=== PATIENT | female | born 2000 | race Caucasian/White ===

== ENCOUNTER 2022-07-17 09:17 | Emergency (ER) | payer OTHER, SELFPAY ==
[2022-07-17 09:24] VITALS: BP 133/94; PULSE 80; RESP 20; TEMP 36.6; O2SAT 98; BMI 25.1
[2022-07-17 09:35] LABS: Appearance Urine Cloudy (Clear); Bilirubin Urine Negative (Negative); Blood Urine 3+ (Negative); Color Urine Yellow (Yellow); Glucose Urine Negative (Negative); Ketones Urine Negative (Negative); Leukocyte Esterase Urine 3+ (Negative); Nitrite Urine Negative (Negative); Protein Urine 3+ (Negative); Specific Gravity Urine 1.015 (1.000-1.030); Urobilinogen Urine 0.2 (0.2-1.0)
[2022-07-17 09:47] LABS: Bacteria Urine Moderate; RBC Urine >100 (0-2); Squamous Epithelial Cell Urine Moderate (None-Few); WBC Urine >100 (0-5)
--- NOTE | 2022-07-17 09:57 | ED.GENADULT ---
HPI - General Adult General Chief complaint: Urogenital Problems, Female Stated complaint: Pain while urinating Time Seen by Provider: 07/17/22 09:20 History of Present Illness HPI narrative: Patient is a pleasant 21-year-old female has had some dysuria frequency and little bit of gross hematuria noted over the last 12 hours, she has had UTIs in the past. Patient usually responds well to medication. She denies any history of urologic problems other than recurrent bladder infection in the past. She has had no rigors, no flank pain, no chills. Related Data Previous Rx's Medication Instructions Recorded sulfamethoxazole 800 1 tab PO BID 7 days #14 tabs 07/17/22 mg-trimethoprim 160 mg tablet Allergies Allergy/AdvReac Type Severity Reaction Status Date / Time No Known Drug Allergies Allergy Verified 07/17/22 09:24 Review of Systems Status of ROS: Reports: 6 or more systems reviewed and unremarkable except as noted in History and below PFSH PFSH Social History Smoking Status: Never smoker Do you use any of these nicotine containing products: None Second hand tobacco smoke exposure: No How often do you have a drink containing alcohol: monthly or less How many standard drinks containing alcohol do you have on a typical day: 3 or 4 How often do you have six or more drinks on one occasion: Never AUDIT-C Alcohol total score: 2 Non-prescribed substance use: denies use service: No Exam Narrative: Exam Narrative: Objective: Patient's vital signs are unremarkable she is afebrile No CVA tenderness Alert orient x3 no cyanosis Const: Vital Signs, click to edit/add: Vital Signs - 24 hr 07/17/22 09:24 Temperature 97.8 F Pulse Rate [Pulse Oximeter] 80 Respiratory Rate 20 Blood Pressure [Ri ght Upper Arm] 133/94 H Pulse Oximetry 98 Oxygen Delivery Me thod Room Air Course Vital Signs Vital signs: Initial Vital Signs Temperature 97.8 F 07/17/22 09:24 Temperature Source Temporal Artery Scan 07/17/22 09:24 Pulse Rate 80 07/17/22 09:24 Pulse Rhythm Regular 07/17/22 09:24 Respiratory Rate 20 07/17/22 09:24 Blood Pressure 133/94 H 07/17/22 09:24 Blood Pressure Mean 107 H 07/17/22 09:24 Blood Pressure Position Sitting 07/17/22 09:24 Pulse Oximetry 98 07/17/22 09:24 Oxygen Delivery Method Room Air 07/17/22 09:24 Vital Signs Temperature 97.8 F 07/17/22 09:24 Pulse Rate 80 07/17/22 09:24 Respiratory Rate 20 07/17/22 09:24 Blood Pressure 133/94 H 07/17/22 09:24 Pulse Oximetry 98 07/17/22 09:24 Oxygen Delivery Method Room Air 07/17/22 09:24 Temperature 97.8 F 07/17/22 09:24 Pulse Rate 80 07/17/22 09:24 Respiratory Rate 20 07/17/22 09:24 Blood Pressure 133/94 H 07/17/22 09:24 Pulse Oximetry 98 07/17/22 09:24 Oxygen Delivery Method Room Air 07/17/22 09:24 Medical Decision Making MDM Narrative Medical decision making narrative: Patient has marked hematuria microscopic and pyuria. Moderate amount of bacteria. Will give Septra DS 1 p.o. now will start b.i.d. x7 days. Cranberry juice, orange juice orally, adequate hydration, light activity, return as needed or not improving in next 24 hours. Lab Data Labs: Lab Results 07/17/22 Range/Units 09:21 Urine Color Yellow (Yellow) Urine Appearance Cloudy A (Clear) Urine pH 7.0 (5.0-8.5) Ur Specific [place] 1.015 (1.000-1.030) Urine Protein 3+ A (Negative) Urine Glucose (UA) Negative (Negative) Urine Ketones Negative (Negative) Urine Blood 3+ A (Negative) Urine Nitrite Negative (Negative) Urine Bilirubin Negative (Negative) Urine Urobilinogen 0.2 (0.2-1.0) Ur Leukocyte Esterase 3+ A (Negative) Urine RBC >100 A (0-2) Urine WBC >100 A (0-5) Ur Squamous Epith Cells Moderate A (None-Few) Urine Bacteria Moderate A (None) Discharge Plan Discharge Clinical Impression: Urinary tract infection Patient Disposition: Home, Self-Care Condition: Stable Additional Instructions: Light activity, cranberry juice by mouth, Septra DS 1 p.o. b.i.d. x7 days. Return as needed. Activity Level: Light activity Discharge Diet: Regular Prescriptions: New sulfamethoxazole-trimethoprim 800-160 mg tablet 1 tab PO BID 7 Days Qty: 14 0RF Follow Up/Referrals: Robert Alonso MD [Primary Care Provider] - Stand Alone Forms: [employer] [employer] Info Instructions
== END 2022-07-17 10:30 | disposition home or self-care (01) ==
PROVIDERS: Emergency Provider Family Medicine; PCP Family Medicine
DX: N39.0 Urinary tract infection, site not specified (principal)
CPT/HCPCS: 81001; 87086; 87186; 99283; A9270

== ENCOUNTER 2023-03-19 14:00 | Emergency (ER) | payer OTHER, SELFPAY ==
[2023-03-19 14:31] VITALS: BP 127/85; PULSE 76; RESP 18; TEMP 36.4; O2SAT 98; BMI 21.5
--- NOTE | 2023-03-19 14:38 | ED.GENADULT ---
HPI - General Adult General Chief complaint: Headache/Migraine Stated complaint: Body aches, headache Time Seen by Provider: 03/19/23 14:27 History of Present Illness HPI narrative: Pt recently in [place]. Since 03/15/23, pt has had body aches, headaches, and sore throat. Headache is worsening. Pt now very fatigued x 2 days, nausea started today. States it hurts to lift her head straight forward. Denies light or sound sensitivity. Negative COVID test this AM. 22-year-old young woman presenting to emergency department with headache. Began to have nausea today. No abdominal pain. Notes a history of menstrual related ?migraines? that have improved since placement of IUD. Over the last 4 days developed initial symptoms of body aches and briefly with sore throat and is left with a residual headache. No visual disturbances no focal weaknesses. No rashes. No fever. She did test negative for COVID this morning. Major concerning symptom is that she seems to be unwilling to lift her head all the way up; notes that it just hurts. No photophobia. Admits she is probably dehydrated partly related to travel; this often happens. Related Data Home Medications Medication Instructions Recorded Confirmed No Known Home Medications 03/19/23 03/20/23 Allergies Allergy/AdvReac Type Severity Reaction Status Date / Time No Known Drug Allergies Allergy Verified 03/20/23 10:52 Review of Systems Status of ROS: Reports: 6 or more systems reviewed and unremarkable except as noted in History and below [facility] Social History Smoking Status: Never smoker Do you use any of these nicotine containing products: None Second hand tobacco smoke exposure: No How often do you have a drink containing alcohol: monthly or less How many standard drinks containing alcohol do you have on a typical day: 3 or 4 How often do you have six or more drinks on one occasion: Never AUDIT-C Alcohol total score: 2 Non-prescribed substance use: denies use service: No Exam Narrative: Exam Narrative: Tall. Well-nourished. Seems tired. Transitions without difficulty but clearly does not want to lift her head fully vertical noting pain at the base of the posterior neck. Moving all extremities without difficulty with good strength. Skin is warm and dry. She is well-perfused without edema. Cranial nerves 2-12 intact. Pupils are equal and briskly reactive. Oropharynx is moist not erythematous. Neck is without anterior or posterior lymphadenopathy. With prompting she does have full range of motion of her neck. Can go to extension of the neck. She does not otherwise demonstrate meningeal signs. TMs are clear. Lungs are clear. Heart with regular rate and rhythm. Const: Vital Signs, click to edit/add: Vital Signs - 24 hr 03/19/23 14:31 Temperature 97.5 F L Pulse Rate [Pulse Oximeter] 76 Respiratory Rate 18 Blood Pressure [Ri t Upper Arm] 127/85 Pulse Oximetry 98 Oxygen Delivery Me thod Room Air Documenting provider has reviewed patient's vital signs: yes Course Vital Signs Vital signs: Initial Vital Signs Temperature 97.5 F L 03/19/23 14:31 Temperature Source Temporal Artery Scan 03/19/23 14:31 Pulse Rate 76 03/19/23 14:31 Pulse Rhythm Regular 03/19/23 14:31 Pulse Strength 3+ Normal 03/19/23 14:31 Respiratory Rate 18 03/19/23 14:31 Blood Pressure 127/85 03/19/23 14:31 Blood Pressure Mean 99 03/19/23 14:31 Blood Pressure Position Sitting 03/19/23 14:31 Pulse Oximetry 98 03/19/23 14:31 Oxygen Delivery Method Room Air 03/19/23 14:31 Vital Signs Temperature 97.5 F L 03/19/23 14:31 Pulse Rate 76 03/19/23 14:31 Respiratory Rate 18 03/19/23 14:31 Blood Pressure 127/85 03/19/23 14:31 Pulse Oximetry 98 03/19/23 14:31 Oxygen Delivery Method Room Air 03/19/23 14:31 Temperature 97.5 F L 03/19/23 14:31 Pulse Rate 76 03/19/23 14:31 Respiratory Rate 18 03/19/23 14:31 Blood Pressure 127/85 03/19/23 14:31 Pulse Oximetry 98 03/19/23 14:31 Oxygen Delivery Method Room Air 03/19/23 14:31 Medications Administered Medications: Discontinued Medications Generic Name Dose Route Start Last Admin Trade Name Freq PRN Reason Stop Dose Admin Diphenhydramine HCl 12.5 mg 03/19/23 15:29 03/19/23 16:07 Diphenhydramine 50 Mg/Ml Inj IVP 03/19/23 15:30 12.5 mg ONCE ONE Administration Sodium Chloride 1,000 mls @ 1,000 mls/hr 03/19/23 15:29 03/19/23 17:10 0.9 % Sodium Chloride 1000 Ml IV 03/19/23 16:28 Infused .Q1H ONE Infusion Ketorolac Tromethamine 30 mg 03/19/23 15:29 03/19/23 16:07 Ketorolac 30 Mg/Ml Inj IVP 03/19/23 15:30 30 mg ONCE ONE Administration Medical Decision Making MDM Narrative Medical decision making narrative: Seems to have had of viral illness with some myalgias generally with residual headache. I inquire about primary concern in that seems to be meningitis. I do not believe meningitis is an issue here. What she would like out of this visit, with repeated inquiry, is relief of the headache. Tylenol has not worked. Will place IV. Ketorolac. Small dose of diphenhydramine. Triple swab is pending. Triple swab ultimately was negative. On reassessment is quite improved and feels she can return home. See patient discharge plan Lab Data Lab results reviewed: Yes I reviewed the patient's lab results Labs: Lab Results 03/19/23 Range/Units 14:30 SARS-CoV-2 (PCR) Negative SARS-CoV-2 (Negative) Influenza Type A (PCR) Negative PCR FLU A (Negative) Influenza Type B (PCR) Negative PCR FLU B (Negative) RSV (PCR) Negative PCR RSV (Negative) Discharge Plan Discharge Clinical Impression: Migraine Patient Disposition: Home w/ Parent or Adult Condition: Improved Additional Instructions: Do focus on hydration. Maybe do some stretching of your neck a few times daily and consider a massage. I would typically find ibuprofen or Excedrin-type medication more effective for headaches, than only acetaminophen. I see tell you that you were negative also here for COVID and influenza. Return for marked increase in persistent headache, discoordination, repeated vomiting. Prescriptions: No Action No Known Home Medications Follow Up/Referrals: Robert Alonso MD [Primary Care Provider] - Stand Alone Forms: [employer] Info Instructions
[2023-03-19 15:14] LABS: PCR FLU A Negative PCR FLU A (Negative); PCR FLU B Negative PCR FLU B (Negative); PCR RSV Negative PCR RSV (Negative)
[2023-03-19 15:19] LABS: SARS PCR* Negative SARS-CoV-2 (Negative)
[2023-03-19] MEDS: 0.9 % SODIUM CHLORIDE 1000 ml 1,000 ML IV (16:07)
[2023-03-19] MEDS: diphenhydrAMINE 50 MG/ML inj 12.5 MG IVP (16:07)
[2023-03-19] MEDS: KETOROLAC 30 MG/ML inj IVP (16:07)
== END 2023-03-19 17:45 | disposition home or self-care (01) ==
PROVIDERS: Emergency Provider Family Medicine; PCP Family Medicine
DX: G43.909 Migraine, unspecified, not intractable, without status migrainosus (principal)
CPT/HCPCS: 87631; 96374; 96375; 99284; J1200; J1885; J7030

== ENCOUNTER 2023-03-20 10:12 | Emergency (ER) | payer OTHER, SELFPAY ==
[2023-03-20 10:47] VITALS: BP 126/85; PULSE 93; RESP 18; TEMP 36.7; O2SAT 96; BMI 21.5
[2023-03-20 11:32] LABS: Appearance Urine Clear (Clear); Bilirubin Urine Negative (Negative); Blood Urine 2+ (Negative); Color Urine Yellow (Yellow); Glucose Urine Negative (Negative); Ketones Urine Negative (Negative); Leukocyte Esterase Urine Negative (Negative); Nitrite Urine Negative (Negative); Protein Urine Negative (Negative); Specific Gravity Urine 1.015 (1.000-1.030); Urobilinogen Urine 0.2 (0.2-1.0)
[2023-03-20 11:44] LABS: Bacteria Urine Few; Squamous Epithelial Cell Urine Few (None-Few); WBC Urine 0-2 (0-5)
--- NOTE | 2023-03-20 12:15 | ED_ITS ---
HPI - Female Genitourinary General Chief complaint: Urogenital Problems, Female Stated complaint: painful urination, possible uti Time Seen by Provider: 03/20/23 11:37 History of Present Illness HPI Narrative: This 22-year-old female comes in reporting dysuria symptoms that began early t his morning. These symptoms include pain with voiding urine, increased frequency, and sense of incomplete emptying. She has noted some cloudy urine also. She is currently menstruating. She was seen yesterday in this emergency department because of a headache and did receive IV fluids and medicines which brought improvement to those symptoms. Related Data Previous Rx's Medication Instructions Recorded cephalexin 500 mg capsule 500 mg PO TID #10 caps 03/20/23 Allergies Allergy/AdvReac Type Severity Reaction Status Date / Time No Known Drug Allergies Allergy Verified 03/20/23 10:52 Review of Systems Status of ROS: Reports: 10 or more systems reviewed and unremarkable except as noted in History and below Narrative: Constitutional: No fevers, no weight gain or loss. Eyes: No discharge. No vision changes. HENT: No congestion, no sore throat, no ear pain. Cardiovascular: No chest pain, no palpitations. Respiratory: No shortness of breath, no wheezes, no cough. Gastrointestinal: No abdominal pain, no vomiting, no diarrhea. Genitourinary: Dysuria symptoms as described above. Musculoskeletal: Normal range of motion. Skin: No rashes, no pruritis. Neurological: No dizziness, weakness, sensory change, speech change. Endo/Heme/Allergies: No bruising or bleeding. No polydipsia. Pysch: no suicidality, no anxiety, no insomnia. All other systems reviewed and are negative. [facility] Social History Smoking Status: Never smoker Do you use any of these nicotine containing products: None Second hand tobacco smoke exposure: No How often do you have a drink containing alcohol: monthly or less How many standard drinks containing alcohol do you have on a typical day: 3 or 4 How often do you have six or more drinks on one occasion: Never AUDIT-C Alcohol total score: 2 Non-prescribed substance use: denies use service: No Exam Narrative: Exam Narrative: Constitutional: Well-developed, well-nourished, no acute distress. HEENT: Normocephalic, atraumatic. Neck: Normal range of motion. Nontender. Supple. Heart: Intact distal pulses. Lungs: No chest discomfort. No wheezes, rhonchi, or rales. Abdomen: Nontender. Back: Normal range of motion. Extremities: Normal range of motion. No injury. Skin: Intact. No rash. Warm. No erythema or pallor. Neurologic: No altered sensation. No weakness. Alert and oriented. Psychiatric: No suicidality. No anxiety or depression. No insomnia. Nursing notes and vitals signs are reviewed. Const: Vital Signs, click to edit/add: Vital Signs - 24 hr 03/20/23 10:47 Temperature 98.0 F Pulse Rate [Right Pulse Oximeter] 93 Respiratory Rate 18 Blood Pressure [Ri ght Upper Arm] 126/85 Pulse Oximetry 96 Oxygen Delivery Me thod Room Air Course Vital Signs Vital signs: Initial Vital Signs Temperature 98.0 F 03/20/23 10:47 Temperature Source Temporal Artery Scan 03/20/23 10:47 Pulse Rate 93 03/20/23 10:47 Respiratory Rate 18 03/20/23 10:47 Blood Pressure 126/85 03/20/23 10:47 Blood Pressure Mean 98 03/20/23 10:47 Pulse Oximetry 96 03/20/23 10:47 Oxygen Delivery Method Room Air 03/20/23 10:47 Vital Signs Temperature 98.0 F 03/20/23 10:47 Pulse Rate 93 03/20/23 10:47 Respiratory Rate 18 03/20/23 10:47 Blood Pressure 126/85 03/20/23 10:47 Pulse Oximetry 96 03/20/23 10:47 Oxygen Delivery Method Room Air 03/20/23 10:47 Temperature 98.0 F 03/20/23 10:47 Pulse Rate 93 03/20/23 10:47 Respiratory Rate 18 03/20/23 10:47 Blood Pressure 126/85 03/20/23 10:47 Pulse Oximetry 96 03/20/23 10:47 Oxygen Delivery Method Room Air 03/20/23 10:47 MDM - Female Genitourinary MDM Narrative Medical decision making narrative: This patient comes in reporting dysuria symptoms. A urinalysis is obtained and shows evidence of hematuria probably related to her menses. There are no signs of infection currently. Her symptoms are suspicious for urinary tract infection. It may be simply bladder spasms but given her recent onset of symptoms which may not be reflected yet in her urine, I did prescribe 3 days of Keflex. Lab Data Labs: Lab Results 03/20/23 Range/Units 11:24 Urine Color Yellow (Yellow) Urine Appearance Clear (Clear) Urine pH 7.0 (5.0-8.5) Ur Specific [place] 1.015 (1.000-1.030) Urine Protein Negative (Negative) Urine Glucose (UA) Negative (Negative) Urine Ketones Negative (Negative) Urine Blood 2+ A (Negative) Urine Nitrite Negative (Negative) Urine Bilirubin Negative (Negative) Urine Urobilinogen 0.2 (0.2-1.0) Ur Leukocyte Esterase Negative (Negative) Urine RBC 10-25 A (0-2) Urine WBC 0-2 (0-5) Urine WBC Clumps None (None) Ur Squamous Epith Cells Few (None-Few) Urine Bacteria Few A (None) Discharge Plan Discharge Additional Instructions: Take medication as prescribed. Use [id number] medicines also as needed and directed. Follow up with MD return if worsening. Prescriptions: New cephalexin 500 mg capsule 500 mg PO TID Qty: 10 0RF Follow Up/Referrals: Robert Alonso MD [Primary Care Provider] - Stand Alone Forms: [employer] Info Instructions
[2023-03-20 12:26] VITALS: BP 126/87; PULSE 87; RESP 16; O2SAT 98
[2023-03-20 12:33] VITALS: TEMP 36.1
--- NOTE | 2023-03-20 12:34 | PC.NURSE ---
School note provided to patient. [facility]. All questions answered. Left via ambulatory.
== END 2023-03-20 12:35 | disposition home or self-care (01) ==
LOC: ED 12:17
PROVIDERS: Emergency Provider Emergency Medicine Emergency Medical Services; PCP Family Medicine
DX: R30.0 Dysuria (principal)
CPT/HCPCS: 81003; 81015; 87086; 99283; 99284

== ENCOUNTER 2024-07-25 17:34 | Emergency (ER) | payer OTHER, SELFPAY ==
--- OUTSIDE RECORDS SUMMARY | 2024-07-25 17:36 | XMS_ITS | Clinical Summary ---
Author Organization [facility] Address [address] [place] [address] Care Team Providers Care Printing Bindery Assistant Name Role Phone Avi King APRN C.NSteve. Primary Care Provid er Source Comments Patient records contain information from all sites at [facility]. For routine questions regarding patient records, call [phone] during business hours, M-F 8:00 AM - 5:00 PM Central Time. Record requests for emergency care only can be directed to [phone] at any time.[facility] Allergies No known active allergies Medications ACETAMINOPHEN ORAL Take by mouth as needed. pain 6 Active IBUPROFEN ORAL Take by mouth as needed. 6 Active levonorgestreL (MIRENA) 20 mcg/24 hours (7 yrs) 52 mg IUD 1 each by intrauterine route continuously. 2 11/28/19 29 Active Active Problems Problem Noted Date Diagnosed Date Migraine Headache Menstrual 09/22/2017 Overview (09/22/2017): No aura. Improved with use of combined oral contraceptive pills. Dysmenorrhea 09/21/2017 Menorrhagia 09/21/2017 Anxiety Generalized Disorder Anxiety Resolved Problems Problem Noted Date Diagnosed Date Resolved Date Dysmenorrhea 09/21/2017 09/22/2017 Menorrhagia 09/21/2017 09/22/2017 Overview (09/22/2017): Resolved with use of combined oral contraceptive pills Premature Personal History 09/21/2017 09/21/2017 Overview (09/21/2017): Born at 33 weeks Fracture Thumb Base Closed Initial Left 01/13/2014 09/21/2017 Encounters Date Type Department Care Team Description 06/23/2024 Orders Only [facility] PCP [facility] MNT Avi King, JAVA TECH, C.N.P. from Last 3 Months Immunizations Immunization Administration Dates Next Due 4vHPV (discontinued) 10/10/2015 9vHPV 09/22/2017,10/10/2015 DTaP (Infanrix, Tripedia) 10/15/2007,,03/08/2002,2001 DTaP / Hib 02/11/2003 DTaP, Unspecified 10/15/2007, 3,03/08/2002,2001 HepA Pediatric/Adolescent 09/22/2017,10/10/2015 HepB Pediatric/Adolescent 08/06/2002,03/08/2002, 2001 Hib-HepB 03/08/2002,2001 IPV 10/15/2007, 3,03/08/2002,2001 Influenza Split 12/29/2014 Influenza, Injectable, Mdck, Preservative Free, Quadrivalent 12/22/2021,03/25/2021 Influenza, Seasonal, Injectable 01/28/2006,01/23,02/11/2003 Influenza, Unspecified 01/17/2017,01/08/2016, MCV4 (Menactra)(Discontinued) 01/03/2020 MCV4, Unspecified 09/26/2014 MMR 11/15/2004,11/05/2002 MenB (BEXSERO) 11/26/2021,10/23/2021 PCV7 (discontinued) 02/11/2003, 3,03/08/2002,2001 Tdap 10/08/2022,12/16/2012 GEO 10/15/2007,11/05/2002 influenza LAIV (Nasal) (2 ye ars through 49 years) 01/27/2014 influenza trivalent LAIV (Na mary) (2 years through 49 years) 01/21/2011,01/27/2010,12/22/2008 influenza trivalent vaccine (6 months and older)(PF) 02/05/2008,05/01/2007 influenza vaccine quad (FLUZONE/FLUARIX) (6 months and older)(PF) 12/19/2022,01/03/2020,01/05/2019,2017,01/02/2013 Family History Medical History Relation Name Comments Asthma Brother will Depression Father rian Obesity Father rian Sleep apnea Father rian Hypertension Father's Brother syd Alcohol abuse Maternal Grandfather Tripp Bárbara Colon polyps Maternal Grandfather Tripp Bárbara Coronary artery disease Maternal Grandfather Tripp W old Diabetes Maternal Grandfather Tripp [place]ár[place] Seizures Maternal Grandfather Tripp [place]ár[place] Sleep apnea Maternal Grandfather Tripp [place]ár[place] Stroke Maternal Grandfather Tripp Bár[place] Hypertension Maternal Grandmother girish Sleep apnea Maternal Grandmother girihs Thyroid disease Maternal Grandmother girish Anxiety disorder Mother dinah Hypertension Mother dinah Migraines Mother dinah Rheum arthritis Mother dinah Thyroid disease Mother dinah Diabetes Mother's Brother jesse Alcohol abuse Paternal Grandfather bhanu Depression Paternal Grandfather bhanu Hyperlipidemia Paternal Grandfather bhanu Hypertension Paternal Grandfather bhanu Obesity Paternal Grandfather bhanu Sleep apnea Paternal Grandfather bhanu Hypertension Paternal Grandmother marifer Migraines Paternal Grandmother marifer Obesity Paternal Grandmother marifer Sleep apnea Paternal Grandmother marifer Relation Name Status Comments Brother will Father rian Father's Brother syd Maternal Grandfather Tripp Bárbara Maternal Grandmother girish Mother dinah Mother's Brother jesse Paternal Grandfather bhanu Paternal Grandmother marifer Social History Tobacco Use Types Packs/Day Years Used Date Smoking Tobacco: Never Smokeless Tobacco: Never Tobacco Cessation:Counseling Given: Not Answered Alcohol Use Standard Drinks/Week Comments No 0 (1 standard drink = 0.6 oz pur e alcohol) Humiliation, Afraid, Rape, and Kick questionnair e Answer Date Recorded Within the last year, have y ou been afraid of your partner or ex-partner? No 10/18/2021 Within the last year, have y ou been humiliated or emotionally abused in other ways by your partner or ex-partner? Yes Within the last year, have y ou been kicked, hit, slapped, or otherwise physically hurt by your partner or ex-partner? No 10/18/2021 Within the last year, have y ou been raped or forced to have any kind of sexual activity by your partner or ex-partner? No 10/18/2021 Social Connection and Isolat ion Panel [NHANES] Answer Date Recorded In a typical week, how many times do you talk on the phone with family, friends, or neighbors? More than three times a week 10/18/2021 How often do you get togethe r with friends or relatives? More than three times a week 10/18/2021 How often do you attend chur or restorationist services? 1 to 4 times per year 10/18/2021 Do you belong to any clubs o r organizations such as evangelical groups, unions, fraternal or athletic groups, or school groups? Yes 10/18/2021 How often do you attend meet ings of the clubs or organizations you belong to? More than 4 times per year 10/18/2021 Are you , , di vorced, , never , or living with a partner? Never 10/18/2021 AUDIT-C Answer Date Recorded Q1: How often do you have a drink containing alc ohol? 2-4 times a month 10/18/2021 Q2: How many drinks containi ng alcohol do you have on a typical day when you are drinking? 3 or 4 10/18/2021 Q3: How often do you have si x or more drinks on one occasion? Never 10/18/2021 Overall Financial Resource Strain (CARDIA) Answe r Date Recorded How hard is it for you to pa y for the very basics like food, housing, medical care, and heating? Not hard at all 10/18/2021 PHQ-2 Answer Date Recorded PHQ-2 Score 0 06/10/2023 [facility] - Occupational Stress Questionnaire Answer Date Recorded Do you feel stress - tense, restless, nervous, or anxious, or unable to sleep at night because your mind is troubled all the time - these days? Rather much 10/18/2021 Exercise Vital Sign Answer Date Recorde d On average, how many days pe r week do you engage in moderate to strenuous exercise (like a brisk walk)? 4 days 10/18/2021 On average, how many minutes do you engage in exercise at this level? 60 min 10/18/2021 Hunger Vital Sign Answer Date Recorded Within the past 12 months, y ou worried that your food would run out before you got the money to buy more. Never true 10/19/19 Within the past 12 months, t he food you bought just didn't last and you didn't have money to get more. Never true 10/18/2021 PRAPARE - Transportation Answer Date Re corded In the past 12 months, has l ack of transportation kept you from medical appointments or from getting medications? No 06/2021 In the past 12 months, has l ack of transportation kept you from meetings, work, or from getting things needed for daily living? No 10/18/2021 Housing Stability Vital Sign Answer Braden e Recorded In the last 12 months, was t here a time when you were not able to pay the mortgage or rent on time? No 10/18/2021 In the last 12 months, how many places have you lived? 2 10/18/2021 In the last 12 months, was t here a time when you did not have a steady place to sleep or slept in a senior living (including now)? No 10/18/2021 Nutrition Answer Date Recorded Nutrition: EVOO Fat Source No 10/18 On average, how many serving s of fruits and vegetables do you eat per day (serving size is equal to 1 cup or approximately the size of a tennis ball)? 2-3 10/18/2021 Dental Answer Date Recorded Dental: Regular Dentist Yes 10/20/19 Employment Answer Date Recorded Employment status Employed and actively working without restrictions 10/18/2021 Education Answer Date Recorded What is the highest level of school you have completed or the highest degree you have received? 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 Not on file Not on file Last Filed Vital Signs Vital Sign Reading Time Taken Comments Blood Pressure 127/81 06/10/2023 10:32 AM CDT Pulse 71 06/10/2023 10:32 AM CDT Temperature 35.9 C (96.7 F) 11/27/2021 11:47 AM CDT Respiratory Rate 14 08/16/2020 9:14 AM CDT Oxygen Saturation 99% 01/09/2019 1:24 PM CDT Inhaled Oxygen Concentration - - Weight 75.8 kg (167 lb 1.7 oz) 06/10/2023 10:32 AM CDT Height 176.5 cm (5' 9.49) 06/10/2023 10:32 AM C DT Body Mass Index 24.33 06/10/2023 10:32 AM CDT Plan of Treatment Health Maintenance Due Date Last Done Comments Cervical/Vaginal Cancer Screening 2001 Hepatitis C Screening 2001 COVID-19 Vaccine ( season) 2023 12/19/2022, 12/22/2021, 03/25/2021, Additional history exists Influenza Vaccine (#1) 2023 , 12/22/2021, 03/25/2021, Additional history exists Depression Screening (Annual PHQ-2) 03/17/2024 DTaP,Tdap,and Td Vaccines (8 - Td or Tdap) 10/08/2032 10/08/2022, 12/16/2012, 10/15/2007, Additional history exists Hepatitis B Vaccines Completed 08/06/2002, 03/08/2002, 03/08/2002, Additional history exists Pneumococcal vaccine (0-49 years) Aged Out 02/11/2003, 08/06/2002, 03/08/2002, Additional history exists No longer eligible based on patient's age to complete this topic IPV Vaccines Completed 10/15/2007, 07/16, 03/08/2002, Additional history exists HPV Vaccines Completed 09/22/2017, 09/15, 10/10/2015 Meningococcal Vaccine Completed 01/03/2020, 015 MenB Vaccine Completed 11/26/2021, 10/23/2021 Medical Devices Implanted Type Area Chain Saw Mechanic Device Identifier Shelf Expiration Date Model / Serial / Lot Intrauterine Device Intrauterine Device Cerv[employer] Insurance [employer] Care Teams Printing Bindery Assistant Relationship Specialty Start Date End Date Avi King APRN, C.N.P. [address] [place] [phone] PCP - General 12/09/18
--- OUTSIDE RECORDS SUMMARY | 2024-07-25 17:36 | XMS_ITS | Encounter Summary ---
Author Organization [facility] Address [address] [place] [address] Care Team Providers Care Tile Setter Supervisor Name Role Phone Avi King APRN C.N.P. Primary Care Provid er Encounter Details Date Type Department Care Team (Late st Contact Info) Description 11/10/2009 Historical Ophthalmology RST OPH Karol Mello O.D. [address] [place] [address] Social History Tobacco Use Types Packs/Day Years Used Date Smoking Tobacco: Never Assessed Comments Unknown Sex and Gender Information Value Date Recorded Sex Assigned at Not on file Legal Sex Female 2:38 AM AGRICULTURAL CHEMICALS INSPECTOR Gender Identity Female 08/14/2020 6:38 PM CDT Sexual Orientation Straight 08/14/2020 6 :38 PM CDT documented as of this encounter Progress Notes * Karol Mello O.D. - 11/10/2009 10:24 AM CDT Eye General CHIEF COMPLAINT blur HISTORY OF PRESENT ILLNESS dist. martin occasionally. otherwise normal. IMPRESSION / REPORT / PLAN #1 mild anisometropic amblyopia, left no previous srx reduced stereo, va is relatively good plan 1. srx 2. 3 months / prn DIAGNOSIS #1 mild anisometropic amblyopia, left CDM Reports - EYEGEN Id: [id number] Status: Fnl documented in this encounter Plan of Treatment Not on file documented as of this encounter Visit Diagnoses Not on filedocumented in this encounter Additional Health Concerns Infection Onset Date Last Indicated Resolved Time COVID19 Pending 01/24/2020 01/25/2020 01/25/2020 6 :41 PM AGRICULTURAL CHEMICALS INSPECTOR COVID19 Pending 01/24/2020 01/24/2020 01/26/2020 2 :57 PM AGRICULTURAL CHEMICALS INSPECTOR COVID19 Pending 06/05/2021 06/05/2021 06/05/2021 1 0:59 PM CDT documented as of this encounter Care Teams Tile Setter Supervisor Relationship Specialty Start Date End Date Avi King, REGINA, C.N.P. [address] [place] [phone] PCP - General 12/09/18 documented as of this encounter
--- OUTSIDE RECORDS SUMMARY | 2024-07-25 17:36 | XMS_ITS | Encounter Summary ---
Author Organization [facility] Address [address] [place] [address] Care Team Providers Care Booth Manager Name Role Phone Avi King APRN C.N.P. Primary Care Provid er Encounter Details Date Type Department Care Team (Late st Contact Info) Description 10/28/2013 Historical Ophthalmology RST OPH Fani Pearson O.D. Social History Tobacco Use Types Packs/Day Years Used Date Smoking Tobacco: Never Assessed Comments Unknown Sex and Gender Information Value Date Recorded Sex Assigned at Not on file Legal Sex Female 2:38 AM MANAGER HEART Gender Identity Female 08/14/2020 6:38 PM CDT Sexual Orientation Straight 08/14/2020 6: 38 PM CDT documented as of this encounter Progress Notes * Fani Oneill O.D. - 10/28/2013 2:47 PM CDT Eye General CHIEF COMPLAINT General exam HISTORY OF PRESENT ILLNESS Patient wears no correction, last wore glasses 3 years ago. Patient reports no changes in vision, no concerns. No PARRY, no double, no problems. Patient denies pain, flashes, floaters, diplopia. IMPRESSION / REPORT / PLAN #1 Refractive error (hyperopic astigmatism). Plan: No Rx recommended at this time. RTC 2-3 years or prn. DIAGNOSIS #1 Refractive error (hyperopic astigmatism). [facility] Reports - EYEGEN Id: [id number] Status: Fnl documented in this encounter Plan of Treatment Not on file documented as of this encounter Visit Diagnoses Not on filedocumented in this encounter Additional Health Concerns Infection Onset Date Last Indicated Resolved Time COVID19 Pending 01/24/2020 01/25/2020 01/25/2020 6 :41 PM MANAGER HEART COVID19 Pending 01/24/2020 01/24/2020 01/26/2020 2 :57 PM MANAGER HEART COVID19 Pending 06/05/2021 06/05/2021 06/05/2021 1 0:59 PM CDT documented as of this encounter Care Teams Booth Manager Relationship Specialty Start Date End Date Avi King, REGINA, C.N.P. [address] [place] [phone] PCP - General 12/09/18 documented as of this encounter
--- OUTSIDE RECORDS SUMMARY | 2024-07-25 17:36 | XMS_ITS | Encounter Summary ---
Author Organization [facility] Address [address] [place] [address] Care Team Providers Care Db2 Systems Programmer Name Role Phone Avi King APRN C.N.Manuel Primary Care Provid er Encounter Details Date Type Department Care Team (Late st Contact Info) Description 11/23/2010 Historical Ophthalmology RST OPH Karol Mello O.D. [address] [place] [address] Social History Tobacco Use Types Packs/Day Years Used Date Smoking Tobacco: Never Assessed Comments Unknown Sex and Gender Information Value Date Recorded Sex Assigned at Not on file Legal Sex Female 2:38 AM RECORDS MANAGEMENT ASSISTANT Gender Identity Female 08/14/2020 6:38 PM CDT Sexual Orientation Straight 08/14/2020 6 :38 PM CDT documented as of this encounter Progress Notes * aKrol Mello O.D. - 11/23/2010 3:05 PM CDT Eye General CHIEF COMPLAINT General eye exam . HISTORY OF PRESENT ILLNESS Patient reports good vision. Stable. IMPRESSION / REPORT / PLAN #1 mild anisometropic amblyopia, left no previous srx srx given 1 year / prn DIAGNOSIS #1 mild anisometropic amblyopia, left CDM Reports - EYEGEN Id: [id number] Status: Fnl documented in this encounter Plan of Treatment Not on file documented as of this encounter Visit Diagnoses Not on filedocumented in this encounter Additional Health Concerns Infection Onset Date Last Indicated Resolved Time COVID19 Pending 01/24/2020 01/25/2020 01/25/2020 6 :41 PM RECORDS MANAGEMENT ASSISTANT COVID19 Pending 01/24/2020 01/24/2020 01/26/2020 2 :57 PM RECORDS MANAGEMENT ASSISTANT COVID19 Pending 06/05/2021 06/05/2021 06/05/2021 1 0:59 PM CDT documented as of this encounter Care Teams Db2 Systems Programmer Relationship Specialty Start Date End Date Avi King, REGINA, C.N.P. [address] [place] [phone] PCP - General 12/09/18 documented as of this encounter
--- OUTSIDE RECORDS SUMMARY | 2024-07-25 17:36 | XMS_ITS | Encounter Summary ---
Author Organization [facility] Address [address] [place] [address] Care Team Providers Care Oil Program Compliance Specialist Name Role Phone Avi King APRN, C.N.P. Primary Care Provid er Reason for Referral * Outpatient (Routine) - Authorized Specialty Diagnoses / Procedures Referred By Contyolanda t Referred To Contact Family Medicine Avi King APRN, C.N.P. [address] [phone] Phone: tel: fax: [facility] Referral ID Status Reason Start Date Expiration Date V isits Requested Visits Authorized [id number] Authorized 06/23/2024 12/23/2025 1 1 Encounter Details Date Type Department Care Team (Late st Contact Info) Description 06/23/2024 [facility]N, C.N.P. [address] [phone] Social History Tobacco Use Types Packs/Day Years Used Date Smoking Tobacco: Never Smokeless Tobacco: Never Alcohol Use Standard Drinks/Week Comments No 0 [...] week 10/18/2021 How often do you attend [facility] or faith services? 1 to 4 times per year 10/18/2021 Do you belong to any clubs o r organizations such as adventism groups, unions, fraternal or athletic groups, or [...] Answer Date Recorded PHQ-2 Score 0 06/10/2023 [facility]at ional Health - Occupational Stress [...] place to sleep or slept in a care home (including now)? 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 [address] [place] [phone] PCP - General 12/09/18 documented as of this encounter
[2024-07-25 17:47] VITALS: BP 137/86; PULSE 91; RESP 18; TEMP 36.7; O2SAT 97; BMI 23.6
[2024-07-25 20:05] LABS: Appearance Urine Clear (Clear); Bilirubin Urine Negative (Negative); Blood Urine Trace-intact (Negative); Color Urine Yellow (Yellow); Glucose Urine Negative (Negative); Ketones Urine Negative (Negative); Leukocyte Esterase Urine Negative (Negative); Nitrite Urine Negative (Negative); Protein Urine Negative (Negative); Specific Gravity Urine 1.025 (1.000-1.030); Urobilinogen Urine 0.2 (0.2-1.0)
[2024-07-25 20:08] LABS: Squamous Epithelial Cell Urine Few (None-Few); WBC Urine 0-2 (0-5)
--- OUTSIDE RECORDS SUMMARY | 2024-07-25 20:12 | XMS_ITS | Encounter Summary ---
Author Organization [facility] Address [address] [place] [address] Care Team Providers Care Director Pharmacy Services Name Role Phone Avi King APRN C.N.Manuel Primary Care Provid er Encounter Details Date Type Department Care Team (Late st Contact Info) Description 11/23/2010 Historical Ophthalmology RST OPH Karol Mello O.D. [address] [place] [address] Social History Tobacco Use Types Packs/Day Years Used Date Smoking Tobacco: Never Assessed Comments Unknown Sex and Gender Information Value Date Recorded Sex Assigned at Not on file Legal Sex Female 2:38 AM SENIOR PROGRAM ANALYST Gender Identity Female 08/14/2020 6:38 PM CDT Sexual Orientation Straight 08/14/2020 6 :38 PM CDT documented as of this encounter Progress Notes * Karol Mello O.D. - 11/23/2010 3:05 PM CDT Eye General CHIEF COMPLAINT General eye exam . HISTORY OF PRESENT ILLNESS Patient reports good vision. Stable. IMPRESSION / REPORT / PLAN #1 mild anisometropic amblyopia, left no previous srx srx given 1 year / prn DIAGNOSIS #1 mild anisometropic amblyopia, left CDM Reports - EYEGEN Id: [id number] Status: Fnl documented in this encounter Plan of Treatment Not on file documented as of this encounter Visit Diagnoses Not on filedocumented in this encounter Additional Health Concerns Infection Onset Date Last Indicated Resolved Time COVID19 Pending 01/24/2020 01/25/2020 01/25/2020 6 :41 PM SENIOR PROGRAM ANALYST COVID19 Pending 01/24/2020 01/24/2020 01/26/2020 2 :57 PM SENIOR PROGRAM ANALYST COVID19 Pending 06/05/2021 06/05/2021 06/05/2021 1 0:59 PM CDT documented as of this encounter Care Teams Director Pharmacy Services Relationship Specialty Start Date End Date Avi King, REGINA, C.N.P. [address] [place] [phone] PCP - General 12/09/18 documented as of this encounter
--- OUTSIDE RECORDS SUMMARY | 2024-07-25 20:12 | XMS_ITS | Encounter Summary ---
Author Organization [facility] Address [address] [place] [address] Care Team Providers Care Manager Channel Name Role Phone Avi King APRN C.N.P. [...] on file Legal Sex Female 2:38 AM SKIN CARE TECHNICIAN Gender Identity Female 08/14/2020 6:38 PM CDT [...] prn. DIAGNOSIS #1 Refractive error (hyperopic astigmatism). [facility] Reports - EYEGEN Id: [id number] Status: Fnl documented in this encounter Plan of Treatment Not on file documented as of this encounter Visit Diagnoses Not on filedocumented in this encounter Additional Health Concerns Infection Onset Date Last Indicated Resolved Time COVID19 Pending 01/24/2020 01/25/2020 01/25/2020 6 :41 PM SKIN CARE TECHNICIAN COVID19 Pending 01/24/2020 01/24/2020 01/26/2020 2 :57 PM SKIN CARE TECHNICIAN COVID19 Pending 06/05/2021 06/05/2021 06/05/2021 1 0:59 PM CDT documented as of this encounter Care Teams Manager Channel Relationship Specialty Start Date End Date Avi King, REGINA, C.N.P. [address] [place] [phone] PCP - General 12/09/18 documented as of this encounter
--- OUTSIDE RECORDS SUMMARY | 2024-07-25 20:12 | XMS_ITS | Clinical Summary ---
Author Organization [facility] Address [address] [place] [address] Care Team Providers Care Mannequin Refinisher Name Role Phone Avi King APRN C.NSteve. Primary Care Provid er Source Comments Patient records contain information from all sites at [facility]. For routine questions regarding patient records, call [phone] during business hours, M-F 8:00 AM - 5:00 PM Central Time. Record requests for emergency care only can be directed to [phone] at any time.[facility] Allergies No known active allergies Medications [...] [facility] PCP [facility] MNT Avi King, METAL FABRICATION SUPERVISOR, C.N.P. from Last 3 Months Immunizations Immunization [...] Maternal Grandmother girish Sleep apnea Maternal Grandmother girish Thyroid disease Maternal Grandmother girish Anxiety disorder [...] How often do you attend chur or uatsdin services? 1 to 4 times per year 10/18/2021 Do you belong to any clubs o r organizations such as judaism groups, unions, fraternal or athletic groups, or [...] Answer Date Recorded PHQ-2 Score 0 06/10/2023 [facility]at ional Health - Occupational Stress [...] place to sleep or slept in a prison (including now)? 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 [address] [place] [phone] PCP - General 12/09/18
--- OUTSIDE RECORDS SUMMARY | 2024-07-25 20:12 | XMS_ITS | Encounter Summary ---
Author Organization [facility] Address [address] [place] [address] Care Team Providers Care Skiver Operator Name Role Phone Avi King APRN C.N.P. Primary Care Provid er Encounter Details Date Type Department Care Team (Late st Contact Info) Description 11/10/2009 Historical Ophthalmology RST OPH Karol Mello O.D. 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 Gender Identity Female 08/14/2020 6:38 PM CDT [...] amblyopia, left CDM Reports - EYEGEN Id: [id number] Status: Fnl documented in this encounter Plan of Treatment Not on file documented as of this encounter Visit Diagnoses Not on filedocumented in this encounter Additional Health Concerns Infection Onset Date Last Indicated Resolved Time COVID19 Pending 01/24/2020 01/25/2020 01/25/2020 6 :41 PM MEDICAL RADIATION DOSIMETRIST COVID19 Pending 01/24/2020 01/24/2020 01/26/2020 2 :57 PM MEDICAL RADIATION DOSIMETRIST COVID19 Pending 06/05/2021 06/05/2021 06/05/2021 1 0:59 PM CDT documented as of this encounter Care Teams Skiver Operator Relationship Specialty Start Date End Date Avi King, REGINA, C.N.P. [address] [place] [phone] PCP - General 12/09/18 documented as of this encounter
--- OUTSIDE RECORDS SUMMARY | 2024-07-25 20:12 | XMS_ITS | Encounter Summary ---
Author Organization [facility] Address [address] [place] [address] Care Team Providers Care Analytics Leader Name Role Phone Avi King APRN, C.N.P. Primary Care Provid er Reason for Referral * Outpatient (Routine) - Authorized Specialty Diagnoses / Procedures Referred By Contyolanda t Referred To Contact Family Medicine Avi King APRN, C.N.P. [address] [phone] Phone: tel: fax: [facility] Referral ID Status Reason Start Date Expiration Date V isits Requested Visits Authorized [id number] Authorized 06/23/2024 12/23/2025 1 1 Encounter Details Date Type Department Care Team (Late st Contact Info) Description 06/23/2024 Orders Only [facility] Avi King APRN, C.N.P. [address] [phone] Social History Tobacco Use Types [...] week 10/18/2021 How often do you attend [facility]? 1 to 4 times per year 10/18/2021 Do you belong to any clubs o r organizations such as uatsdin groups, unions, fraternal or athletic groups, or [...] Answer Date Recorded PHQ-2 Score 0 06/10/2023 [facility] - Occupational [...] place to sleep or slept in a usp (including now)? 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 [address] [place] [phone] PCP - General 12/09/18 documented as of this encounter
--- NOTE | 2024-07-25 20:21 | ED.SKABFB ---
HPI - Skin/Abscess/Foreign Bdy General Date Seen: 07/25/24 Chief complaint: Skin/Abscess/Foreign Body Stated complaint: Spreading Right side rash Time Seen by Provider: 07/25/24 19:30 Source: patient Mode of arrival: ambulatory Limitations: no limitations History of Present Illness HPI narrative: Patient is a 23-year-old female presenting to emergency department for concern of a rash on her right forearm. Also notices slightly on the left forearm and on her abdomen. States it is worse in the right it is itchy. Have been using Benadryl without any improvement. Symptoms are better now than they typically are she states. Has never had a rash like this before. Cannot think of any allergies. Has a new cat and a couple scratches on her wrist but no systemic symptoms. There is no erythema around the scratches she states. Has no recent changes to detergents, medications, lotions or anything like that. The only change is the new cat within the past month. Denies fevers, chills, chest pain, shortness of breath, lightheadedness, dizziness, weakness, dysuria, hematuria. No other concerns Related Data Allergies Allergy/AdvReac Type Severity Reaction Status Date / Time No Known Drug Allergies Allergy Verified 07/25/24 17:52 Review of Systems Status of ROS: Reports: 10 or more systems reviewed and unremarkable except as noted in History and below [facility] Social History Smoking Status: Never smoker Do you use any of these nicotine containing products: None Second hand tobacco smoke exposure: No How often do you have a drink containing alcohol: monthly or less How many standard drinks containing alcohol do you have on a typical day: 3 or 4 How often do you have six or more drinks on one occasion: Never AUDIT-C Alcohol total score: 2 Non-prescribed substance use: denies use service: No Exam Narrative: Exam Narrative: Const: Well-nourished, Well-developed, in mild distress Eyes: PERRL, no conjunctival injection, and symmetrical lids HENT: Atraumatic external nose and ears. Moist mucous membranes. Neck: Symmetric, trachea midline, No thyromegaly. CVS: RRR, No murmurs or gallops. Peripheral pulses 2+ and equal in all extremities RESP: Unlabored respiratory effort. Clear to auscultation bilaterally. GI: Nontender/Nondistended, No rebound or guarding. MSK:Extremities w/o deformity, Normal Active ROM Skin: Petechial rash seen on right forearm and slightly on left wrist and a few small spots on the abdomen. It is raised on the right forearm. Neuro: Normal Muscle tone, No focal neurological deficits. Psych: Awake, Alert, & Oriented x3. Appropriate mood and affect. Const: Vital Signs, click to edit/add: Vital Signs - 24 hr 07/25/24 17:47 07/25/24 20:32 07/25/24 20:32 Temperature 98.1 F 98.1 F 98.1 F Pulse Rate [Pulse Oximeter] 91 84 84 Respiratory Rate 18 18 18 Blood Pressure [Ri t Upper Arm] 137/86 125/70 125/70 Pulse Oximetry 97 97 Oxygen Delivery Me thod Room Air Room Air Course Vital Signs Vital signs: Initial Vital Signs Temperature 98.1 F 07/25/24 17:47 Temperature Source Temporal Artery Scan 07/25/24 17:47 Pulse Rate 91 07/25/24 17:47 Respiratory Rate 18 07/25/24 17:47 Blood Pressure 137/86 07/25/24 17:47 Blood Pressure Mean 103 07/25/24 17:47 Blood Pressure Position Sitting 07/25/24 17:47 Pulse Oximetry 97 07/25/24 17:47 Oxygen Delivery Method Room Air 07/25/24 17:47 Vital Signs Temperature 98.1 F 07/25/24 17:47 Pulse Rate 91 07/25/24 17:47 Respiratory Rate 18 07/25/24 17:47 Blood Pressure 137/86 07/25/24 17:47 Pulse Oximetry 97 07/25/24 17:47 Oxygen Delivery Method Room Air 07/25/24 17:47 Temperature 98.1 F 07/25/24 20:32 Pulse Rate 84 07/25/24 20:32 Respiratory Rate 18 07/25/24 20:32 Blood Pressure 125/70 07/25/24 20:32 Pulse Oximetry 97 07/25/24 20:32 Oxygen Delivery Method Room Air 07/25/24 20:32 MDM - Skin/Abscess/Foreign Bdy MDM Narrative Medical decision making narrative: Patient is a 23-year-old female presenting to the emergency department for rash. She was concerning could be infection from her cat scratches. Does not appear to be infection around the cat scratches. Does not have any axillary lymphadenopathy. Overall she is nontoxic appearing with no symptoms noted other than the itchiness. There is some thought this could be ITP but the rash is it T was would seem abnormal for a thrombocytopenia cause. No signs of infection cause. I did offer a CBC but she declined at this time. Urinalysis ordered to the for signs of vasculitis. Denies, there is trace blood but no proteinuria. At this time I will treat this as an allergic reaction. She will be discharged with prednisone via instymeds. She is agreeable to this plan. I did inform her she needs to return for evaluation for any worsening symptoms. She states she understands. She will follow-up with her primary care provider. Lab Data Labs: Lab Results 07/25/24 Range/Units 19:47 Urine Color Yellow (Yellow) Urine Appearance Clear (Clear) Urine pH 7.0 (5.0-8.5) Ur Specific Ethel 1.025 (1.000-1.030) Urine Protein Negative (Negative) Urine Glucose (UA) Negative (Negative) Urine Ketones Negative (Negative) Urine Blood Trace-intact A (Negative) Urine Nitrite Negative (Negative) Urine Bilirubin Negative (Negative) Urine Urobilinogen 0.2 (0.2-1.0) Ur Leukocyte Esterase Negative (Negative) Urine RBC 2-5 A (0-2) Urine WBC 0-2 (0-5) Ur Squamous Epith Cells Few (None-Few) Urine Bacteria None (None) Discharge Plan Discharge Clinical Impression: Rash Patient Disposition: Home, Self-Care Condition: Stable Instructions: Acute Rash (ED) Additional Instructions: I cannot say exactly was causing this acute rash at this time. We will treated as an allergic reaction. Take Pepcid and Benadryl along with the prescribed prednisone. If start any systemic symptoms such as fevers, confusion, chest pain or any other concerning signs return for re-evaluation. Follow Up/Referrals: Robert Alonso MD [Primary Care Provider] - Stand Alone Forms: [facility] Info Instructions
[2024-07-25 20:32] VITALS: BP 125/70; PULSE 84; RESP 18; TEMP 36.7; O2SAT 97
== END 2024-07-25 20:33 | disposition home or self-care (01) ==
PROVIDERS: Emergency Provider Student in an Organized Health Care Education/Training Program; PCP Family Medicine
DX: R21 Rash and other nonspecific skin eruption (principal)
CPT/HCPCS: 81001; 99283